=== PATIENT | male | born 1960 | race Caucasian/White ===

== ENCOUNTER 2016-11-10 15:32 | Emergency (ER) | payer SELFPAY ==
[2016-11-10] MEDS ORDERED: OXYCODONE HCL IR 5 MG TABLET PO ONE (16:31)
[2016-11-10] MEDS ORDERED: LIDOCAINE 1% INJ-PF (10 MG/ML) 30 ML SDV INJ ONE (16:31)
--- NOTE | 2016-11-10 16:54 | ER Document Report ---
HPI - HPI Pain Level: 4 Notes: Patient is a 56-year-old male comes to the ED complaining of an abscess to his right mid back 1 week. Patient states that he does go away on its own so he has not taken any medicines for it. Patient states that it may have begun as a small insect bite. Patient states he has been having pain especially when he is lying on the right side. He has noticed some slight discharge coming out has been keeping a Band-Aid over it. He still eating and drink without any problems otherwise. Denies any headaches, fever, dizziness, URI, sore throat, chest pain, palpitations, syncope, cough, wheeze, shortness of breath, dyspnea, abdominal pain, nausea/vomiting/diarrhea, dysuria, joint pains. Denies history of IV drug use or significant PMH. Former smoker. No h/o MRSA. - ROS Notes: REVIEW OF SYSTEMS: CONSTITUTIONAL : Denies fever, chills, or sweats. Denies recent illness. EENT: Denies eye, ear, throat, or mouth pain or symptoms. Denies nasal or sinus congestion or discharge. Denies throat, tongue, or mouth swelling or difficulty swallowing. CARDIOVASCULAR: Denies chest pain. Denies palpitations or racing or irregular heart beat. Denies ankle edema. RESPIRATORY: Denies cough, cold, or chest congestion. Denies shortness of breath, difficulty breathing, or wheezing. GASTROINTESTINAL: Denies abdominal pain or distention. Denies nausea, vomiting , or diarrhea. Denies blood in vomitus, stools, or per rectum. Denies black, tarry stools. Denies constipation. GENITOURINARY: Denies difficulty urinating, painful urination, burning, frequency, blood in urine, or discharge. MUSCULOSKELETAL: Denies back or neck pain or stiffness. Denies joint pain or swelling. SKIN: see hpi ALL OTHER SYSTEMS REVIEWED AND NEGATIVE. Dictation was performed using [employer] voice recognition software - DERM Skin Color: Normal Past Medical History - Social History Smoking Status: Unknown if Ever Smoked Family History: Reviewed & Not Pertinent Patient has suicidal ideation: No Patient has homicidal ideation: No - Past Medical History Cardiac Medical History: Reports: Hx Hypertension Renal/ Medical History: Denies: Hx Peritoneal Dialysis Musculoskeltal Medical History: Denies Hx Arthritis Traumatic Medical History: Denies: Hx Fractures - Immunizations Hx Diphtheria, Pertussis, Tetanus Vaccination: Yes Vertical Provider Document - CONSTITUTIONAL Notes: PHYSICAL EXAMINATION: GENERAL: Well-appearing, well-nourished and in no acute distress. NECK: Normal range of motion, supple without lymphadenopathy. No rigidity. LUNGS: Breath sounds clear to auscultation bilaterally and equal. No wheezes rales or rhonchi. HEART: Regular rate and rhythm without murmurs, rubs, gallops. ABDOMEN: Soft, nontender, nondistended abdomen. No guarding, no rebound. No masses appreciated. Normal bowel sounds present. No CVA tenderness bilaterally. Musculoskeletal: FROM to passive/active. Strength 5+/5. Extremities: No cyanosis, clubbing, or edema b/l. Peripheral pulses 2+. Capillary refill less than 3 seconds. NEUROLOGICAL: Cranial nerves grossly intact. Normal speech, normal gait. Normal sensory, motor exams PSYCH: Normal mood, normal affect. SKIN: + abscess noted to the mid rt back approx 1cm open and scant discharge. Induration noted lateral to the discharge site and is approx 8.5cm long and 2- 2.5cm wide. No fluctuant pocket noted. Surrounding erythema noted. + tenderness to palpation. No red streaks noted. - INFECTION CONTROL TRAVEL OUTSIDE OF THE [place] IN LAST 30 DAYS: No - RESPIRATORY O2 Sat by Pulse Oximetry: 98 Course - Re-evaluation Re-evalutation: 11/10/16 20:14 Patient is an afebrile, well-hydrated, 56-year-old male presents to the ED with abscess and cellulitis to his right mid back. Vitals are stable. I&D was performed today successfully without complications. I will place him on Keflex and Bactrim. Oxycodone was provided a prescription as well. Wound instructions provided. Patient to follow-up in the ED in 2-3 days for recheck. He may also recheck with his PCM as well. Conservative measures for symptoms otherwise. Low sepsis, or other systemic infection. Patient to return to the ED with any worsening/concerning symptoms as reviewed in discharge. Patient agreement. - Vital Signs Vital signs: Temp Pulse Resp BP Pulse Ox 98.2 F 72 16 168/90 H 98 11/10/16 15:39 11/10/16 15:39 11/10/16 15:39 11/10/16 15:39 11/10/16 15:39 Procedures - Incision and Drainage Right Back Time completed: 17:20 Type: Simple Anesthetic type: 1% Lidocaine mL's of anesthetic: 10 Blade size: 11 - was utilized to make a 5cm incision. Hemostats utilized to break up the indurated tissue. Packing with iodoform. wound dressing. Pt tolerated procedure well, no complications. minimal blood loss. I&D procedure: Shurclens applied, Sterile dressing applied Incision Method: Incision made by scalpel Amount/type of drainage: bloody, pustular Discharge - Discharge Clinical Impression: Abscess Cellulitis Qualifiers: Site of cellulitis: trunk Site of cellulitis of trunk: back Qualified Code(s): L03.312 - Cellulitis of back [any part except buttock] Condition: Stable Disposition: HOME, SELF-CARE Instructions: Trimethoprim-Sulfa ([facility]), Post Incision and Drainage, Cephalexin ([facility]), Oral Narcotic Medication ([facility]), Abscess ([facility]) Additional Instructions: Do not shower or bathe for 24 hours. After 24 hours she may shower but no submersion of the wound under water. Keep the original dressing on the wound for 24 hours unless the drainage stops through. Change the dressing daily thereafter and use a small amount of triple antibiotic ointment over the open wound. Return to the ED and/or your PCM in 2-3 days for recheck and continue direction for wound packing. Monitor for any signs of worsening pain or redness , streaks, and/or fever. Return to the ED if noticing any of the above symptoms or as needed. Take medications as directed. Prescriptions: Cephalexin Monohydrate [Keflex 500 mg Capsule] 500 mg PO BID #20 capsule Oxycodone HCl [Oxycodone HCl 10 MG Tablet] 1 - 2 tab PO Q6H PRN #15 tablet PRN Reason: PAIN Sulfamethoxazole/Trimethoprim [Bactrim Ds Tablet] 1 each PO BID #20 tablet Forms: Elevated Blood Pressure Referrals: MARITZA GRANGER MD [ACTIVE STAFF] - Follow up as needed [facility] [Provider Group] - Follow up as needed
[2016-11-10 18:21] VITALS: BP 174/96
== END 2016-11-10 18:23 | disposition home or self-care (01) ==
LOC: ER 15:32
PROC: 0H96XZZ Drainage of Back Skin, External Approach (ICD-10-PCS; principal; 2016-11-10)
DX: L02.212 Cutaneous abscess of back [any part, except buttock and flank] (principal); Z87.891 Personal history of nicotine dependence; I10 Essential (primary) hypertension
CPT/HCPCS: 99283; 87070; 87205; 87075; 87077; 87186; 10060; J3490; A6266

== ENCOUNTER 2016-11-14 10:51 | Emergency (ER) | payer SELFPAY ==
[2016-11-14 10:57] VITALS: BP 155/87
--- NOTE | 2016-11-14 11:08 | ER Document Report ---
HPI - HPI Patient complains to provider of: Wound recheck Onset: Other Onset/Duration: Persistent Pain Level: 4 Context: 56-year-old male had an abscess incised on Thursday in the emergency department. He is taking cephalexin and Septra. No fever or chills. Associated Symptoms: None Exacerbated by: Movement Relieved by: Denies Similar symptoms previously: No Recently seen / treated by doctor: Yes - ROS ROS below otherwise negative: Yes Systems Reviewed and Negative: Yes All other systems reviewed and negative - DERM Skin Color: Normal Past Medical History - General Information source: Patient - Social History Smoking Status: Unknown if Ever Smoked Frequency of alcohol use: None Drug Abuse: None Lives with: Family Family History: Reviewed & Not Pertinent Patient has suicidal ideation: No Patient has homicidal ideation: No - Past Medical History Cardiac Medical History: Reports: Hx Hypertension Renal/ Medical History: Denies: Hx Peritoneal Dialysis Surgical Hx: Negative - Immunizations Hx Diphtheria, Pertussis, Tetanus Vaccination: Yes Vertical Provider Document - CONSTITUTIONAL Agree With Documented VS: Yes Exam Limitations: No Limitations - INFECTION CONTROL TRAVEL OUTSIDE OF THE [place] IN LAST 30 DAYS: No - HEENT HEENT: Normocephalic - NECK Neck: Supple - RESPIRATORY O2 Sat by Pulse Oximetry: 96 - BACK Notes: packing removed from inferior left scapular abscess site, no surrounding erythema, mild pus. - MUSCULOSKELETAL/EXTREMETIES Musculoskeletal/Extremeties: DAT MULLEN - DERM Integumentary: Warm, Abscess Course - Vital Signs Vital signs: Temp Pulse Resp BP Pulse Ox 97.9 F 80 16 155/87 H 96 11/14/16 10:56 11/14/16 10:56 11/14/16 10:56 11/14/16 10:56 11/14/16 10:56 Discharge - Discharge Clinical Impression: Wound check, abscess Condition: Good Disposition: HOME, SELF-CARE Instructions: Abscess ([facility]) Additional Instructions: wash with soap and water in the shower daily with dry dressing to er if increased pain, fever, swelling finish the antibiotics Please complete the patient satisfaction survey if you get one, and return it.. If you do not receive a survey, then you can go to the [facility] website, [email or web address] and place your comments about your very good care. Thank you very much. It was a pleasure being your medical provider today. Prescriptions: Oxycodone HCl/Acetaminophen [Percocet 5-325 mg Tablet] 1 tab PO ASDIR PRN #15 tablet PRN Reason:
== END 2016-11-14 11:44 | disposition home or self-care (01) ==
LOC: ER 10:51
DX: L02.414 Cutaneous abscess of left upper limb (principal); I10 Essential (primary) hypertension
CPT/HCPCS: 99282

== ENCOUNTER 2017-06-22 10:06 | Emergency (ER) | payer SELFPAY ==
[2017-06-22] MEDS ORDERED: HYDROCODONE/ACETAMINOPHEN 5-325 MG (6 TAB/ER DISP) PO PRN (12:18)
--- NOTE | 2017-06-22 12:20 | ER Document Report ---
ED General - General Chief Complaint: Abscess Stated Complaint: LUMP ON ARMPIT Mode of Arrival: Ambulatory Information source: Patient TRAVEL OUTSIDE OF THE [place] IN LAST 30 DAYS: No - HPI Notes: 57-year-old male presents today with complaints of bilateral pain under her armpits 1 week. States he feels like he has bumps underneath his axillas. Reports pain is 8 out of 10, throbbing achy. Has not tried any warm soaks. History of boils under his skin. Worse with time, nothing makes better. Has not tried heat. Patient does not have a primary care provider and also was unable to be seen by one. D Has not tried [id number] medication. for pain. Patient states he does not take his blood pressure medication, denies any blurred vision, double vision, loss of vision, numbness or tingling down bilateral upper or lower extremities, chest pain, shortness of breath, nausea, vomiting, diarrhea, abdominal pain, testicular or rectal pain, speech changes. Patient does not have insurance right now, states he is going to the community clinic and has an appointment soon to start his blood pressure medication - Related Data Allergies/Adverse Reactions: No Known Allergies Allergy (Verified 11/14/16 10:55) Past Medical History - General Information source: Patient - Social History Smoking Status: Current Every Day Smoker Frequency of alcohol use: None Drug Abuse: None Family History: Reviewed & Not Pertinent Patient has suicidal ideation: No Patient has homicidal ideation: No - Past Medical History Cardiac Medical History: Reports: Hx Hypertension Renal/ Medical History: Denies: Hx Peritoneal Dialysis Musculoskeltal Medical History: Denies Hx Arthritis Traumatic Medical History: Denies: Hx Fractures - Immunizations Hx Diphtheria, Pertussis, Tetanus Vaccination: Yes Review of Systems - Review of Systems Constitutional: No symptoms reported EENT: No symptoms reported Cardiovascular: No symptoms reported Respiratory: No symptoms reported Gastrointestinal: No symptoms reported Genitourinary: No symptoms reported Male Genitourinary: No symptoms reported Musculoskeletal: No symptoms reported Skin: See HPI Hematologic/Lymphatic: No symptoms reported Neurological/Psychological: No symptoms reported Physical Exam - Vital signs Vitals: Temp Pulse Resp BP Pulse Ox 98.2 F 75 16 189/101 H 98 06/22/17 10:20 06/22/17 10:20 06/22/17 10:20 06/22/17 10:20 06/22/17 10:20 - Notes Notes: PHYSICAL EXAMINATION: GENERAL: Well-appearing, well-nourished and in no acute distress. HEAD: Atraumatic, normocephalic. EYES: Pupils equal round and reactive to light, extraocular movements intact, sclera anicteric, conjunctiva are normal. ENT: Nares patent, oropharynx clear without exudates. Moist mucous membranes. NECK: Normal range of motion, supple without lymphadenopathy LUNGS: Breath sounds clear to auscultation bilaterally and equal. No wheezes rales or rhonchi. HEART: Regular rate and rhythm without murmurs ABDOMEN: Soft, nontender, nondistended abdomen. No guarding, no rebound. No masses appreciated. Musculoskeletal: Normal range of motion, no pitting or edema. No cyanosis. NEUROLOGICAL: Cranial nerves grossly intact. Normal speech, normal gait. Normal sensory, motor exams PSYCH: Normal mood, normal affect. SKIN: Warm, Dry, normal turgor, no rashes or lesions noted.bilateral axilla with [id number] area of erythema, induration, erythema and warmth to touch approx, no fluctuance or drainage Course - Re-evaluation Re-evalutation: 06/22/17 12:28 After performing a Medical Screening Examination, I estimate there is LOW risk for OPEN FRACTURE, COMPARTMENT SYNDROME, TENDON RUPTURE, ACUTE NEUROVASCULAR INJURY, or RETAINED FOREIGN BODY, thus I consider the discharge disposition reasonable. Also, there is no evidence or peritonitis, sepsis, or toxicity. I have reevaluated this patient multiple times and no significant life threatening changes are noted. The patient and I have discussed the diagnosis and risks, and we agree with discharging home with close follow-up with the understanding that symptoms and presentations can change. We also discussed returning to the Emergency Department immediately if new or worsening symptoms occur. We have discussed the symptoms which are most concerning (e.g., changing or worsening pain, fever, numbness, weakness, cool or painful digits) that necessitate immediate return. - Vital Signs Vital signs: Temp Pulse Resp BP Pulse Ox 98.2 F 75 16 189/101 H 98 06/22/17 10:20 06/22/17 10:20 06/22/17 10:20 06/22/17 10:20 06/22/17 10:20 Discharge - Discharge Clinical Impression: Cellulitis Qualifiers: Site of cellulitis: extremity Site of cellulitis of extremity: axilla Laterality: unspecified laterality Qualified Code(s): L03.119 - Cellulitis of unspecified part of limb Condition: Good Disposition: HOME, SELF-CARE Instructions: Trimethoprim-Sulfa ([facility]) Additional Instructions: Cellulitis You have an infection of your skin and underlying soft tissues called cellulitis. This is due to bacteria, which can enter through any break in the skin, or even through an irritated hair follicle. Untreated, cellulitis will usually worsen. Antibiotics are required. Usually, warm packs or warm soaks, and elevation of the infected area are recommended. You should start getting better within 24 to 36 hours. Most infections respond quickly to the right medication. Follow-up care is important, however, to check for abscess (boil) formation, unsuspected foreign body, or resistant infection. If you develop fever, chills, or if the area of infection is becoming rapidly more swollen or painful, call the doctor at once. Warm compresses to site 20 minutes on 20 minutes off several times a day. Take [id number] ibuprofen and Tylenol as needed. Take shower immediately after working out or sweating. Follow-up with PCP within 3 days. Return to the emergency room if symptoms become worse. Return immediately for any new or worsening symptoms. Follow up with primary care provider, call tomorrow to make followup appointment. Prescriptions: Sulfamethoxazole/Trimethoprim [Sulfamethoxazole-Tmp Ds Tablet] 1 each PO BID # 20 tablet Forms: Return to Work
[2017-06-22 12:34] VITALS: BP 146/88
== END 2017-06-22 12:35 | disposition home or self-care (01) ==
LOC: ER 10:06
DX: L03.119 Cellulitis of unspecified part of limb (principal); L02.412 Cutaneous abscess of left axilla; L02.411 Cutaneous abscess of right axilla; F17.200 Nicotine dependence, unspecified, uncomplicated
CPT/HCPCS: 99282